=== PATIENT | female | born 1980 | race Asian ===

== ENCOUNTER 2017-02-04 13:34 | Outpatient (CLI) | payer OTHER ==
[~2017-02-04] VITALS: Ht 167.6 cm; Wt 78.9 kg
[~2017-02-04 13:34] MED LIST: FOLIC ACID0.4 MG PO; FOLIC ACID0.8 MG PO; MULTIPLE VITAM1 EAC4 PO; Motrin PO; PRENATAL VITAMIN; VICODIN 5-3001 EACH PO
[2017-02-04 13:54] VITALS: BP 104/61
[2017-02-04] MEDS ORDERED: PRENATAL TABLE1 EAC3 PO (14:13)
== END 2017-02-04 16:22 | disposition home or self-care (01) ==
LOC: LDRP-OP 13:34 → 2WEST 13:35 → LDRP-OP 03-11 15:20
DX: O47.1 False labor at or after 37 completed weeks of gestation (principal); Z3A.39 39 weeks gestation of pregnancy; O09.523 Supervision of elderly multigravida, third trimester
CPT/HCPCS: 59025; G0378

== ENCOUNTER 2017-02-08 08:01 | Inpatient (IN) | payer OTHER ==
[2017-02-08] VITALS (20 sets, daily range): BP systolic 86–104; BP diastolic 52–66
[~2017-02-08] VITALS: Ht 167.6 cm; Wt 81.8 kg
[~2017-02-08 08:01] MED LIST changes: +PRENATAL TABLE1 EAC3 PO
[2017-02-08] MEDS ORDERED: VP-VITE RX TAB1 EACH PO (08:24)
[2017-02-08 08:55] LABS: EOSINOPHIL (%) 1.1 % (0-5); EOSINOPHIL COUNT 0.1 K/uL (0-0.3); HEMATOCRIT 34.6 % (36.0-46.0); IMMATURE GRANULOCYTE (%) 0.7 % (0.0-0.7); INSTRUMENT ABS NEUTROPHIL CT 4.2 K/uL; LYMPHOCYTE COUNT 1.3 K/uL (1.0-2.8); MCHC 34.1 G/DL (30.0-36.0); MEAN PLAT.VOLUME 11.4 uM^3 (9.5-12.4); MONOCYTE (%) 9.1 % (3-12); MONOCYTE COUNT 0.6 K/uL (0-0.8); NEUTROPHIL (%) 67.6 % (45-76); NEUTROPHIL COUNT 4.2 K/uL (1.8-6.4); PLATELET COUNT 128 K/uL (156-360); RBC DIS.WIDTH-CV 13.2 % (11.8-14.6); RBC DIS.WIDTH-SD 42.8 % (39-53); RED BLOOD COUNT 3.93 M/uL (3.80-5.20); WHITE BLOOD COUNT 6.1 K/uL (4.1-10.2)
[2017-02-09 06:03] LABS: EOSINOPHIL COUNT 0.1 K/uL (0-0.3); HEMATOCRIT 32.6 % (36.0-46.0); IMMATURE GRANULOCYTE (%) 0.5 % (0.0-0.7); IMMATURE GRANULOCYTE COUNT 0.1 K/uL; INSTRUMENT ABS NEUTROPHIL CT 6.8 K/uL; LYMPHOCYTE COUNT 1.5 K/uL (1.0-2.8); MCH 30.2 PG (29.0-34.0); MCV 88.6 FL (83-99); MEAN PLAT.VOLUME 11.4 uM^3 (9.5-12.4); MONOCYTE COUNT 0.7 K/uL (0-0.8); NEUTROPHIL (%) 74.1 % (45-76); NEUTROPHIL COUNT 6.8 K/uL (1.8-6.4); PLATELET COUNT 104 K/uL (156-360); RBC DIS.WIDTH-CV 13.2 % (11.8-14.6); RED BLOOD COUNT 3.68 M/uL (3.80-5.20); WHITE BLOOD COUNT 9.2 K/uL (4.1-10.2)
[2017-02-09 06:58] VITALS: BP 94/52
[2017-02-09 14:51] VITALS: BP 99/51
[2017-02-09 23:20] VITALS: BP 104/50
[2017-02-10 07:17] VITALS: BP 107/60
[2017-02-10 15:42] VITALS: BP 105/57
[2017-02-10] MEDS ORDERED: IBUPROFEN800 MG PO (16:20)
[2017-02-10] MEDS ORDERED: MOTRIN800 MG PO (16:20)
== END 2017-02-10 20:20 | disposition home or self-care (01) | DRG 775 ==
LOC: LDRP-OP 08:01 → 2WEST 08:02 → LDRP-OP 13:15 → 2WEST 18:30 → LDRP-OP 03-11 17:12
PROVIDERS: Obstetrics & Gynecology
PROC: 3E0R3CZ (ICD-10-PCS; principal; 2017-02-08)
PROC: 10907ZC Drainage of Amniotic Fluid, Therapeutic from Products of Conception, Via Natural or Artificial Opening (ICD-10-PCS; principal; 2017-02-08)
PROC: 00HU33Z Insertion of Infusion Device into Spinal Canal, Percutaneous Approach (ICD-10-PCS; principal; 2017-02-08)
PROC: 10E0XZZ Delivery of Products of Conception, External Approach (ICD-10-PCS; principal; 2017-02-08)
DX: O41.03X0 Oligohydramnios, third trimester, not applicable or unspecified (principal); O76 Abnormality in fetal heart rate and rhythm complicating labor and delivery; Z3A.39 39 weeks gestation of pregnancy; Z37.0 Single live birth
CPT/HCPCS: 85025; C1755; J3010; J7120